=== PATIENT | male | born 2000 | race Asian ===

== ENCOUNTER 2022-05-15 23:27 | Emergency (ER) | payer BC, SELFPAY ==
[2022-05-15] MEDS ORDERED: Ipratropium/Albuterol 3 ML NEB ONE (23:56)
[2022-05-16 00:40] LABS: #Basophils 0.1 10x3/uL (0.0-0.2); #Monocytes 0.8 10x3/uL (0.0-1.1); %Basophils 0.4 % (0.0-2.0); %Eosinophils 0.1 % (0.0-6.0); %Lymphocytes 13.3 % (18.0-47.0); %Monocytes 5.8 % (0.0-10.0); Hemoglobin 15.8 g/dL (13.5-17.5); Mean Corpuscular Hemoglobin 29.4 pg (27.0-33.0); Mean Platelet Volume 8.2 fl (7.4-10.4); Platelet Count 299 10x3/uL (150-450); RBC Distribution Width 12.1 % (11.5-14.5); Red Blood Cell (RBC) Count 5.37 10x6/uL (4.32-5.72); White Blood Cell (WBC) Count 13.9 10x3/uL (3.5-10.5)
[2022-05-16 00:56] LABS: ALT (SGPT) 21 U/L (8-55); AST (SGOT) 31 U/L (10-45); Albumin 4.7 g/dL (3.5-5.0); Alkaline Phosphatase 89 U/L (50-130); Anion Gap 18 mmol/L (10-20); BUN (Urea Nitrogen) 20 mg/dL (8.4-21.0); Bilirubin, Total 1.4 mg/dL (0.2-1.2); Calc. Creatinine Clearance 0 mL/min (70-130); Calcium 9.6 mg/dL (7.8-10.44); Carbon Dioxide 23 mmol/L (22-29); Chloride 102 mmol/L (98-107); Estimated GFR 103; Globulin 3.3 g/dL (2.4-3.5); Glucose 88 mg/dL (70-105); Potassium 3.9 mmol/L (3.5-5.1); Sodium 139 mmol/L (136-145)
[2022-05-16 01:04] LABS: SARS-CoV-2 NAA Rapid Test Not Detected (NotDetected)
[2022-05-16] MEDS ORDERED: Ipratropium/Albuterol 3 ML NEB ONE (01:05)
== END 2022-05-16 02:33 | disposition home or self-care (01) ==
LOC: CSHERS 23:27
DX: R06.02 Shortness of breath (principal); R07.89 Other chest pain; D72.829 Elevated white blood cell count, unspecified; Z20.822 Contact with and (suspected) exposure to COVID-19
CPT/HCPCS: 36415; 71045; 80053; 85025; J7620